=== PATIENT | female | born 2000 | race Caucasian/White ===

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

== ENCOUNTER → 2021-08-02 | Outpatient (CLI) | payer BC ==
[2021-08-03 01:11] LABS: HEPATITIS B SURFACE ANTIGEN Negative (Negative)
== END ==
LOC: LAB 11:47
PROVIDERS: Family Medicine
DX: Z92.89 Personal history of other medical treatment (principal)